=== PATIENT | female | born 1960 | race Two or more races ===

== ENCOUNTER 2016-09-19 12:14 | Emergency (ER) | payer OTHER ==
[~2016-09-19] VITALS: Ht 160 cm; Wt 59.0 kg
[2016-09-19 12:16] VITALS: BP 145/98
[2016-09-19 13:22] LABS: LYMPHOCYTES % (AUTO) 29.4 % (20.0-45.0); MEAN CORPUSCULAR HEMOGLOBIN 30.1 PG (27.0-31.0); MEAN CORPUSCULAR HGB CONC 33.5 G/DL (32.0-36.0); MEAN CORPUSCULAR VOLUME 90 FL (80-99); MEAN PLATELET VOLUME 7.9 FL (6.5-10.1); MONOCYTES % (AUTO) 6.7 % (1.0-10.0); NEUTROPHILS % (AUTO) 60.9 % (45.0-75.0); PLATELET COUNT 253 K/UL (150-450); RED BLOOD COUNT 4.55 M/UL (4.20-5.40); RED CELL DISTRIBUTION WIDTH 11.5 % (11.6-14.8); WHITE BLOOD COUNT 5.5 K/UL (4.8-10.8)
[2016-09-19 13:34] LABS: ACETAMINOPHEN < 10 ug/mL (10-30); ALANINE AMINOTRANSFERASE 24 U/L (3-33); ALBUMIN/GLOBULIN RATIO 1.9 (1.0-2.7); ALCOHOL < 10 mg/dL; ANION GAP 19 (5-15); ASPARTATE AMINO TRANSFERASE 24 U/L (5-40); CALCIUM 9.1 mg/dL (8.6-10.2); CARBON DIOXIDE 26 mEQ/L (20-30); CHLORIDE 94 mEQ/L (98-107); CREATININE 0.8 mg/dL (0.5-0.9); GLOMERULAR FILTRATION RATE > 60 mL/min (>60); HEMOLYSIS 3; POTASSIUM 3.1 mEQ/L (3.4-4.9); SODIUM 139 mEQ/L (135-145)
--- NOTE | 2016-09-19 13:47 | Diagnostic Imaging Report ---
Indication: cognitive impairment Technique: Contiguous 5 mm thick transaxial imaging of the head obtained in a Siemens Sensation [address] scanner. Soft tissue and bone windows generated. Total Dose length Product (DLP): [address] Dose Index Volume (CTDIvol): 70.38 mGy Comparison: none Findings: In the left sylvian fissure (image 10 series 3) there is a round less than 5 mm focus of high attenuation (HU 60-70). This could be a cortical vein that is calcified. This could be an unusual focus of cysticercosis. Doubt that this is relevant to the patient's current clinical presentation of altered mental status. There is no associated mass effect or edema. Might consider further evaluation with MRI. The size and configuration of the cortical sulci, basal cisterns, and ventricles are within normal limits for age. There is no mass effect, midline shift, or edema identified. There is no evidence of abnormal intra-axial or extra-axial fluid collections. The bones and soft tissues are unremarkable. Impression: No mass effect, edema or acute bleed. 5 mm round focus of high attenuation in the left sylvian fissure of unknown etiology. This is likely incidental. Evaluation with MRI/MRA may be considered to further elucidate. The CT scanner at [facility] is accredited by the [employer] and the scans are performed using protocols designed to limit radiation exposure to as low as reasonably achievable to attain images of sufficient resolution adequate for diagnostic evaluation.
--- NOTE | 2016-09-19 14:54 | Emergency Room Report ---
History of Present Illness General Chief Complaint: Behavioral Complaint Source: Patient, EMS Present Illness HPI The patient is a 55-year-old female who denies any medical history brought in by ambulance for acting bizarre while at work. The patient is unable to provide any information at this time and is mumbling nonsensical sentences in both [place] and [place]. After the complete workup was done, and then called in regarding the patient and states that she went into his refrigerator and drink a drink that contained marijuana previous to acting this way. Allergies: Coded Allergies: UNABLE TO ASSESS (Unverified , 09/19/16) Patient History Past Medical History: see triage record Pertinent Family History: none Reviewed Nursing Documentation: PMH: Agreed, PSxH: Agreed Nursing Documentation-PMH Past Medical History Deferred: Pt Cognitively Impaired Review of Systems All Other Systems: negative except mentioned in HPI Physical Exam Vital Signs Date Time Temp Pulse Resp B/P Pulse Ox O2 Delivery O2 Flow Rate FiO2 09/19/16 12:07 107 20 145/98 100 Sp02 EP Interpretation: reviewed, normal General Appearance: no apparent distress, alert, GCS 15, non-toxic Head: normocephalic, atraumatic Eyes: bilateral eye EOMI, bilateral eye PERRL, bilateral eye normal inspection ENT: hearing grossly normal, normal pharynx, no angioedema, normal voice Neck: full range of motion, supple/symm/no masses Respiratory: chest non-tender, lungs clear, normal breath sounds, speaking full sentences Cardiovascular #1: regular rate, rhythm, no edema Gastrointestinal: normal bowel sounds, non tender, soft, non-distended, no guarding, no rebound Genitourinary: normal inspection, no CVA tenderness Musculoskeletal: back normal, gait/station normal, normal range of motion, non- tender Neurologic: alert, responsive, motor strength/tone normal, DTRs symmetric, sensory intact Psychiatric: no suicidal/homicidal ideation, other - The patient alters between lethargy and hyperactivity Skin: normal color, no rash, warm/dry, well hydrated Lymphatic: no adenopathy Medical Decision Making PA Attestation Dr. Collier is my supervising physician. Patient management was discussed with my supervising physician Diagnostic Impression: Primary Impression: Marijuana intoxication ER Course Labs:The patient is a 55-year-old female who denies any medical history brought in by ambulance for acting bizarre while at work. 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 DDx: drug use, psychosis, CVA PE: Vitals WNL. NAD. Pt does not follow commands. Head NC/AT. PERRL. No facial drooping. No slurred speech. The patient alters between lethargy and hyperactivity Labs: CBC unremarkable. CMP shows mild hypokalemia. Urine drug screen positive for THC CT head unremarkable for acute process. This is most likely consistent with accidental ingestion of marijuana. The patient will be discharged home. Family member is on the way. Laboratory Tests Test 09/19/16 13:00 09/19/16 13:20 White Blood Count 5.5 K/UL (4.8-10.8) Red Blood Count 4.55 M/UL (4.20-5.40) Hemoglobin 13.7 G/DL (12.0-16.0) Hematocrit 40.9 % (37.0-47.0) Mean Corpuscular Volume 90 FL (80-99) Mean Corpuscular Hemoglobin 30.1 PG (27.0-31.0) Mean Corpuscular Hemoglobin Concent 33.5 G/DL (32.0-36.0) Red Cell Distribution Width 11.5 % (11.6-14.8) L Platelet Count 253 K/UL (150-450) Mean Platelet Volume 7.9 FL (6.5-10.1) Neutrophils (%) (Auto) 60.9 % (45.0-75.0) Lymphocytes (%) (Auto) 29.4 % (20.0-45.0) Monocytes (%) (Auto) 6.7 % (1.0-10.0) Eosinophils (%) (Auto) 2.0 % (0.0-3.0) Basophils (%) (Auto) 1.0 % (0.0-2.0) Sodium Level 139 mEQ/L (135-145) Potassium Level 3.1 mEQ/L (3.4-4.9) L Chloride Level 94 mEQ/L (98-107) L Carbon Dioxide Level 26 mEQ/L (20-30) Anion Gap 19 (5-15) H Blood Urea Nitrogen 17 mg/dL (7-23) Creatinine 0.8 mg/dL (0.5-0.9) Estimate Glomerular Filtration Rate > 60 mL/min (>60) Glucose Level 142 mg/dL (74-106) H Calcium Level 9.1 mg/dL (8.6-10.2) Total Bilirubin 0.3 mg/dL (0.0-1.2) Aspartate Amino Transferase (AST) 24 U/L (5-40) Alanine Aminotransferase (ALT) 24 U/L (3-33) Alkaline Phosphatase 60 U/L (35-104) Total Protein 7.0 g/dL (6.6-8.7) Albumin 4.6 g/dL (3.5-5.2) Globulin 2.4 g/dL Albumin/Globulin Ratio 1.9 (1.0-2.7) Salicylates Level < 1 mg/dL (10-30) L Acetaminophen Level < 10 ug/mL (10-30) L Serum Alcohol < 10 mg/dL Urine Opiates Screen Negative (NEGATIVE) Urine Barbiturates Screen Negative (NEGATIVE) Phencyclidine (PCP) Screen Negative (NEGATIVE) Urine Amphetamines Screen Negative (NEGATIVE) Urine Benzodiazepines Screen Negative (NEGATIVE) Urine Cocaine Screen Negative (NEGATIVE) Urine Marijuana (THC) Screen Positive (NEGATIVE) H Lab Results Impression CBC unremarkable. CMP shows mild hypokalemia. Urine drug screen positive for THC CT/MRI/US Diagnostic Results CT/MRI/US Diagnostic Results : Imaging Test Ordered: CT head Impression Unremarkable for acute process Last Vital Signs Date Time Temp Pulse Resp B/P Pulse Ox O2 Delivery O2 Flow Rate FiO2 09/19/16 12:16 20 145/98 100 09/19/16 12:07 107 Status: improved Disposition: HOME, SELF-CARE Condition: Improved Referrals: REGAL MED NORA,REFERRING (PCP) ASIA LUCERO Sep 19, 2016 14:54
[2016-09-19] MEDS: KCl 10% 40mEq/30ml liquid ORAL ONE ×3 (15:33→15:59)
[2016-09-19 16:00] VITALS: BP 125/75
[2016-09-19 16:40] VITALS: BP 125/75
== END 2016-09-19 16:40 | disposition home or self-care (01) ==
LOC: EDBD 12:14 → EMR 13:25
DX: F12.920 Cannabis use, unspecified with intoxication, uncomplicated (principal)
CPT/HCPCS: 36415; 70450; 80053; 80300; 80329; 85025; 99284; J8499